=== PATIENT | male | born 1935 | race Caucasian/White ===

== ENCOUNTER 2018-02-01 18:34 | Emergency (ER) | payer MEDICARE, MEDICAID, OTHER ==
[~2018-02-01] VITALS: Ht 172.7 cm; Wt 72.7 kg
[~2018-02-01 18:34] MED LIST: ALLO100T PO; AMLO10TA PO; ASPI-611 PO; ATOR80TA PO; BUTA1CAP17 PO; CHOL10002 PO; LEVO25TA2 PO; LOSA100T15 PO; ROPI1TAB2 PO; TRAM50TA2 PO
[2018-02-01] MEDS ORDERED: acetaminophen 325mg tablet PO ONE (20:35)
[2018-02-01 22:07] VITALS: BP 150/92
== END 2018-02-01 22:08 | disposition home or self-care (01) ==
LOC: ER 18:35
DX: T65.891A Toxic effect of other specified substances, accidental (unintentional), initial encounter (principal); I10 Essential (primary) hypertension; K21.9 Gastro-esophageal reflux disease without esophagitis; R53.83 Other fatigue; G89.29 Other chronic pain; Z90.49 Acquired absence of other specified parts of digestive tract; Z98.890 Other specified postprocedural states; Z79.82 Long term (current) use of aspirin; Z79.899 Other long term (current) drug therapy; Y92.9 Unspecified place or not applicable
CPT/HCPCS: 99284

== ENCOUNTER 2018-02-04 21:30 | Emergency (ER) | payer MEDICARE, MEDICAID, OTHER ==
[~2018-02-04] VITALS: Ht 170.2 cm; Wt 70.0 kg
[2018-02-04] MEDS ORDERED: IBUP-1984 PO (23:10)
[2018-02-04] MEDS ORDERED: HYDROcodone/acetaminophen 5mg/325mg tablet PO ONE (23:40)
[2018-02-04 23:54] VITALS: BP 129/56
== END 2018-02-04 23:56 | disposition home or self-care (01) ==
LOC: ER 21:33 → MERGE 21:33 → ER 23:56
DX: S20.229A Contusion of unspecified back wall of thorax, initial encounter (principal); S00.33XA Contusion of nose, initial encounter; M54.2 Cervicalgia; Z60.2 Problems related to living alone; Y04.8XXA Assault by other bodily force, initial encounter; Y93.89 Activity, other specified; Y92.89 Other specified places as the place of occurrence of the external cause; Y99.8 Other external cause status
CPT/HCPCS: 72040; 99284

== ENCOUNTER 2018-03-13 10:05 | Emergency (ER) | payer MEDICARE, MEDICAID, OTHER ==
[~2018-03-13] VITALS: Ht 170.2 cm; Wt 62.9 kg
[~2018-03-13 10:05] MED LIST changes: -LOSA100T15 PO; +LOSA100T57 PO
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
[2018-03-13] MEDS ORDERED: acetaminophen 325mg tablet PO ONE (10:45)
[2018-03-13] MEDS ORDERED: normal saline 1000ml 1,000 ML IV ONE (10:50)
[2018-03-13 11:35] LABS: BASOPHILS % (AUTO) 0.6 % (0-1); EOSINOPHILS % (AUTO) 0.3 % (0-6); HEMATOCRIT 40.4 % (42.0-52.0); HEMOGLOBIN 13.3 g/dl (14.0-17.9); LYMPHOCYTES # (AUTO) 0.4 X10'3 (1.1-4.8); LYMPHOCYTES % (AUTO) 10.2 % (21-51); MEAN CORPUSCULAR HEMOGLOBIN 33.9 PG (27.0-31.0); MEAN CORPUSCULAR HGB CONC 32.9 % (33.0-36.5); MEAN PLATELET VOLUME 7.6 FL (7.4-10.4); MONOCYTES # (AUTO) 0.4 X10'3 (0-0.9); MONOCYTES % (AUTO) 9.5 % (2-12); NEUTROPHILS # (AUTO) 3.2 X10'3 (1.8-7.7); NEUTROPHILS % (AUTO) 79.4 % (42-75); PLATELET COUNT 231 X10'3 (140-440); RED BLOOD COUNT 3.93 X10'6 (4.70-6.10); RED CELL DISTRIBUTION WIDTH 14.3 % (11.5-14.5)
[2018-03-13 11:48] LABS: PROTHROMBIN TIME 10.1 SECONDS (9.0-12.0)
[2018-03-13 11:50] VITALS: BP 174/84
[2018-03-13 11:51] LABS: ALANINE AMINOTRANSFERASE 24 U/L (12-78); ALBUMIN 3.7 G/DL (3.4-5.0); ALBUMIN/GLOBULIN RATIO 1.1 (1.1-1.5); ALKALINE PHOSPHATASE 86 IU/L (46-116); ANION GAP 9 (8-16); ASPARTATE AMINO TRANSFERASE 31 U/L (10-37); BILIRUBIN,TOTAL 1.5 MG/DL (0.1-1.0); BLOOD UREA NITROGEN 10 MG/DL (7-18); BUN/CREATININE RATIO 8.3 (5.4-32.0); CALCIUM 8.8 MG/DL (8.5-10.1); CHLORIDE 102 MMOL/L (99-107); CREATININE 1.21 MG/DL (0.60-1.10); GLUCOSE 119 MG/DL (70-104); MAGNESIUM 1.8 MG/DL (1.5-2.4); POTASSIUM 3.9 MMOL/L (3.5-5.1); SODIUM 139 MMOL/L (135-145); TOTAL CARBON DIOXIDE 27.7 MMOL/L (24-32); eGFR 58 ML/MIN
[2018-03-13] MEDS ORDERED: iohexol 350MG/ML 100ml bottle IV ONE (12:15)
[2018-03-13] MEDS ORDERED: LIDO700A32 TOP (12:55)
[2018-03-13] MEDS ORDERED: TRAM50TA2 PO (12:55)
== END 2018-03-13 13:34 | disposition home or self-care (01) ==
LOC: ER 10:06
DX: S00.81XA Abrasion of other part of head, initial encounter (principal); M79.605 Pain in left leg; M25.512 Pain in left shoulder; I10 Essential (primary) hypertension; K21.9 Gastro-esophageal reflux disease without esophagitis; G89.29 Other chronic pain; Z90.49 Acquired absence of other specified parts of digestive tract; Z98.890 Other specified postprocedural states; Z79.82 Long term (current) use of aspirin; Z79.899 Other long term (current) drug therapy; Z60.2 Problems related to living alone; Y04.0XXA Assault by unarmed brawl or fight, initial encounter; Y93.89 Activity, other specified; Y92.89 Other specified places as the place of occurrence of the external cause; Y99.8 Other external cause status
CPT/HCPCS: 36415; 70450; 71045; 71275; 72125; 73564; 80053; 83735; 84484; 85025; 85610; 93005; 99284; J7030; Q9967

== ENCOUNTER 2018-04-23 00:48 | Emergency (ER) | payer MEDICARE, MEDICAID, OTHER ==
[~2018-04-23] VITALS: Ht 170.2 cm; Wt 68.0 kg
[~2018-04-23 00:48] MED LIST changes: +LIDO700A32 TOP
[2018-04-23] MEDS ORDERED: aspirin 81mg tab.chew PO ONE (00:55)
--- NOTE | 2018-04-23 01:00 | NUR ---
PT HAVING SHARP CHEST PAINS THAT MAKE HIM JERK WHILE LYING IN BED. WAS HANGING UP FRESHLY WASHED CLOTHES IN BATHROOM WHEN PAIN STARTED. RECEIVED ASA 324MG AND NTG X 1 SL ENROUTE TO ER.
[2018-04-23 01:23] LABS: BASOPHILS % (AUTO) 1.5 % (0-1); EOSINOPHILS % (AUTO) 0.3 % (0-6); HEMATOCRIT 35.1 % (42.0-52.0); HEMOGLOBIN 11.9 g/dl (14.0-17.9); LYMPHOCYTES # (AUTO) 0.8 X10'3 (1.1-4.8); LYMPHOCYTES % (AUTO) 23.7 % (21-51); MEAN CORPUSCULAR HEMOGLOBIN 34.5 PG (27.0-31.0); MEAN CORPUSCULAR HGB CONC 33.8 g/dL (33.0-36.5); MEAN CORPUSCULAR VOLUME 102.1 FL (78-98); MEAN PLATELET VOLUME 7.6 FL (7.4-10.4); MONOCYTES # (AUTO) 0.4 X10'3 (0-0.9); MONOCYTES % (AUTO) 13.5 % (2-12); PLATELET COUNT 207 X10'3 (140-440); RED BLOOD COUNT 3.44 X10'6 (4.70-6.10); RED CELL DISTRIBUTION WIDTH 14.3 % (11.5-14.5); WHITE BLOOD COUNT 3.2 X10'3 (4.5-11.0)
[2018-04-23 01:28] LABS: ALANINE AMINOTRANSFERASE 18 U/L (12-78); ALBUMIN 3.5 G/DL (3.4-5.0); ALBUMIN/GLOBULIN RATIO 1.2 (1.1-1.5); ALKALINE PHOSPHATASE 94 IU/L (46-116); ANION GAP 12 (8-16); ASPARTATE AMINO TRANSFERASE 27 U/L (10-37); BILIRUBIN,TOTAL 0.3 MG/DL (0.1-1.0); BLOOD UREA NITROGEN 19 MG/DL (7-18); CALCIUM 8.7 MG/DL (8.5-10.1); CHLORIDE 104 MMOL/L (99-107); CREATININE 1.12 MG/DL (0.60-1.10); GLUCOSE 82 MG/DL (70-104); POTASSIUM 3.4 MMOL/L (3.5-5.1); SODIUM 143 MMOL/L (135-145); TOTAL CARBON DIOXIDE 27.4 MMOL/L (24-32); TOTAL PROTEIN 6.5 G/DL (6.4-8.2); eGFR 63 ML/MIN
[2018-04-23 03:42] VITALS: BP 127/81
== END 2018-04-23 03:43 | disposition home or self-care (01) ==
LOC: ER 00:50
DX: R07.89 Other chest pain (principal); R06.02 Shortness of breath; I10 Essential (primary) hypertension; K21.9 Gastro-esophageal reflux disease without esophagitis; G89.29 Other chronic pain; M54.9 Dorsalgia, unspecified; F10.10 Alcohol abuse, uncomplicated; Z79.82 Long term (current) use of aspirin
CPT/HCPCS: 36415; 71045; 80053; 83735; 83880; 84484; 85025; 93005; 99284

== ENCOUNTER 2018-05-20 13:45 | Emergency (ER) | payer MEDICARE, MEDICAID, OTHER ==
[~2018-05-20] VITALS: Ht 170.2 cm; Wt 64.7 kg
[2018-05-20 13:58] VITALS: BP 115/68
--- NOTE | 2018-05-20 14:22 | NUR ---
CALL TO [facility] AT THIS TIME, OFFICER TO BE DISPATCHED SOON POSSIBLE.
[2018-05-20] MEDS ORDERED: TETanus/Pertussis (Acell)/Diphther VAC/PF (Tdap-Adult) 0.5ml syringe IM ONE (15:25)
[2018-05-20] MEDS ORDERED: bacitracin 15gm ointment TP ONE (15:25)
[2018-05-20 15:26] LABS: BASOPHILS % (AUTO) 0.2 % (0-1); EOSINOPHILS % (AUTO) 0 % (0-6); HEMATOCRIT 33.3 % (42.0-52.0); HEMOGLOBIN 11.5 g/dl (14.0-17.9); LYMPHOCYTES # (AUTO) 0.4 X10'3 (1.1-4.8); MEAN CORPUSCULAR HEMOGLOBIN 35.3 PG (27.0-31.0); MEAN CORPUSCULAR HGB CONC 34.6 g/dL (33.0-36.5); MEAN CORPUSCULAR VOLUME 102.1 FL (78-98); MEAN PLATELET VOLUME 7.6 FL (7.4-10.4); MONOCYTES # (AUTO) 0.9 X10'3 (0-0.9); MONOCYTES % (AUTO) 8.9 % (2-12); NEUTROPHILS # (AUTO) 8.7 X10'3 (1.8-7.7); NEUTROPHILS % (AUTO) 86.9 % (42-75); PLATELET COUNT 164 X10'3 (140-440); RED BLOOD COUNT 3.26 X10'6 (4.70-6.10)
[2018-05-20 15:31] LABS: ALANINE AMINOTRANSFERASE 22 U/L (12-78); ALBUMIN 3.3 G/DL (3.4-5.0); ALKALINE PHOSPHATASE 93 IU/L (46-116); ANION GAP 13 (8-16); ASPARTATE AMINO TRANSFERASE 26 U/L (10-37); BILIRUBIN,TOTAL 0.9 MG/DL (0.1-1.0); BLOOD UREA NITROGEN 15 MG/DL (7-18); BUN/CREATININE RATIO 14.2 (5.4-32.0); CALCIUM 8.8 MG/DL (8.5-10.1); CHLORIDE 101 MMOL/L (99-107); CREATININE 1.06 MG/DL (0.60-1.10); ETHANOL 0.105 GM/DL (0.0-0.010); GLUCOSE 108 MG/DL (70-104); POTASSIUM 3.4 MMOL/L (3.5-5.1); SODIUM 136 MMOL/L (135-145); TOTAL CARBON DIOXIDE 22.3 MMOL/L (24-32); TOTAL PROTEIN 6.5 G/DL (6.4-8.2); eGFR 67 ML/MIN
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
[2018-05-20] MEDS ORDERED: cephalexin 250mg capsule PO ONE (16:05)
[2018-05-20] MEDS ORDERED: sulfamethoxazole/trimethoprim DS (800/160mg) tablet PO ONE (16:05)
[2018-05-20 16:15] LABS: URINE AMPHETAMINE SCREEN NEGATIVE (Neg); URINE BARBITUATE SCREEN NEGATIVE (Neg); URINE BENZODIAZEPINES SCREEN NEGATIVE (Neg); URINE CANNABINOID SCREEN NEGATIVE (Neg); URINE COCAINE SCREEN NEGATIVE (Neg); URINE METHADONE SCREEN NEGATIVE (Neg); URINE OPIATE SCREEN NEGATIVE (Neg); URINE PHENCYCLIDINE SCREEN NEGATIVE (Neg)
[2018-05-20] MEDS ORDERED: BACDS PO (16:16)
[2018-05-20] MEDS ORDERED: CEPH500C5 PO (16:16)
[2018-05-24] MEDS ORDERED: FOLI1TAB16 PO (10:02)
[2018-05-24] MEDS ORDERED: CEPH250T PO (10:02)
[2018-05-24] MEDS ORDERED: thiamine tablet PO (10:02)
[2018-05-24] MEDS ORDERED: MAGN500C16 PO (13:56)
== END 2018-05-20 16:55 | disposition home or self-care (01) ==
LOC: ER 13:46
DX: S51.801A Unspecified open wound of right forearm, initial encounter (principal); S51.802A Unspecified open wound of left forearm, initial encounter; S50.312A Abrasion of left elbow, initial encounter; L03.114 Cellulitis of left upper limb; L03.113 Cellulitis of right upper limb; I10 Essential (primary) hypertension; K21.9 Gastro-esophageal reflux disease without esophagitis; G89.29 Other chronic pain; Z90.49 Acquired absence of other specified parts of digestive tract; Z98.890 Other specified postprocedural states; Z79.82 Long term (current) use of aspirin; Z79.899 Other long term (current) drug therapy; Y04.0XXA Assault by unarmed brawl or fight, initial encounter; Y93.89 Activity, other specified; Y92.89 Other specified places as the place of occurrence of the external cause; Y99.9 Unspecified external cause status
CPT/HCPCS: 36415; 70450; 80053; 80305; 80320; 85025; 90471; 90715; 99284

== ENCOUNTER 2018-05-21 19:58 | Inpatient (IN) | payer MEDICARE, MEDICAID, OTHER | END 2018-05-24 15:30 | disposition home or self-care (01) | LOC: ER 19:58 → ED HOLD 05-22 00:26 → SUR 3N 05-22 15:46 | DX: A41.9 Sepsis, unspecified organism (principal); L03.113 Cellulitis of right upper limb; L03.114 Cellulitis of left upper limb; N17.9 Acute kidney failure, unspecified; E87.6 Hypokalemia; F10.20 Alcohol dependence, uncomplicated; E86.0 Dehydration ==

== ENCOUNTER 2018-06-19 09:00 | Day surgery (SDC) | payer MEDICARE, MEDICAID, OTHER ==
[~2018-06-19 09:00] MED LIST changes: -ALLO100T PO; -ASPI-611 PO; -ATOR80TA PO; -BUTA1CAP17 PO; +CEPH250T PO; -CHOL10002 PO; +DICL100G15 TOP; +FOLI1TAB16 PO; -LEVO25TA2 PO; -LIDO700A32 TOP; +MAGN500C16 PO; -TRAM50TA2 PO; +thiamine tablet PO
[2018-06-19] MEDS ORDERED: LIDOcaine 1%/PF 5ML 10 MG/ML VIAL ONE (10:28)
[2018-06-19] MEDS ORDERED: mupirocin 2% ointment 22GM ONE (11:54)
--- NOTE | 2018-06-19 12:00 | NUR ---
Patient ambulated independently from [facility] and was admitted to outpatient wound care for physician visit with Jose J Houser MD. Patient referred by his PMD for excision of 2 sebaceous cysts to his back. New patient assessment completed. 1115 - Dr. Houser at bedside accompanied by RN. Wound assessed, time out performed by MD/RN. Procedure performed as detailed in the physician progress/procedure note. Plan of care discussed with patient. Dressings placed per MD orders. Patient instructed to return to clinic in 1 week. Patient instructed on the signs and symptoms of infection and to call the [facility] if any occur or to go to the ED if we are closed: Increased pain in wound Increase in drainage from the wound Redness in the skin surrounding the wound Bleeding from the wound Temperature of 101 or greater Patient instructed that the weight of their body puts a large amount of pressure on their wounds. This pressure keeps the new tissue from growing and inhibits new blood vessels from forming. Explained that, if they continue to bear weight on a body part that has a wound, the time it takes to heal the wound increases, the wound may get worse or the wound may not heal at all. Patient verbalized understanding of all discharge instructions and plan of care and ambulated independently out to [facility] in stable condition with no sign or symptom of distress at time of discharge.
== END 2018-06-19 12:06 | disposition home or self-care (01) ==
LOC: WOUND CARE 09:00
PROVIDERS: ATTEND Surgery
DX: L72.3 Sebaceous cyst (principal); R20.8 Other disturbances of skin sensation; I10 Essential (primary) hypertension; K21.9 Gastro-esophageal reflux disease without esophagitis; G62.9 Polyneuropathy, unspecified; F10.20 Alcohol dependence, uncomplicated; F03.90 Unspecified dementia, unspecified severity, without behavioral disturbance, psychotic disturbance, mood disturbance, and anxiety; Z79.82 Long term (current) use of aspirin; Z79.899 Other long term (current) drug therapy; Z98.890 Other specified postprocedural states; Z90.49 Acquired absence of other specified parts of digestive tract; G89.29 Other chronic pain
CPT/HCPCS: 11056; J2001; 88304

== ENCOUNTER 2021-08-03 13:46 | Inpatient (IN) | payer MEDICARE, MEDICAID ==
[~2021-08-03] VITALS: Ht 170.2 cm; Wt 70.5 kg
[~2021-08-03 13:46] MED LIST changes: -AMLO10TA PO; -CEPH250T PO; -DICL100G15 TOP; -FOLI1TAB16 PO; -LOSA100T57 PO; -MAGN500C16 PO; +METO-395 PO; -ROPI1TAB2 PO; -thiamine tablet PO
[2021-08-03 14:01] LABS: BASOPHILS % (AUTO) 0.7 % (0-1); EOSINOPHILS % (AUTO) 0.5 % (0-6); HEMATOCRIT 36.6 % (42.0-52.0); HEMOGLOBIN 12.1 g/dl (14.0-17.9); LYMPHOCYTES # (AUTO) 0.8 X10'3 (1.1-4.8); LYMPHOCYTES % (AUTO) 12.6 % (21-51); MEAN PLATELET VOLUME 7.8 FL (7.4-10.4); MONOCYTES # (AUTO) 0.6 X10'3 (0-0.9); MONOCYTES % (AUTO) 9.3 % (2-12); NEUTROPHILS # (AUTO) 5.1 X10'3 (1.8-7.7); NEUTROPHILS % (AUTO) 76.9 % (42-75); PLATELET COUNT 304 X10'3 (140-440); RED BLOOD COUNT 3.55 X10'6 (4.70-6.10); RED CELL DISTRIBUTION WIDTH 13.1 % (11.5-14.5); WHITE BLOOD COUNT 6.6 X10'3 (4.5-11.0)
[2021-08-03 14:14] LABS: APTT 23 SECONDS (22-32)
[2021-08-03 14:18] LABS: ALANINE AMINOTRANSFERASE 15 U/L (12-78); ALBUMIN 3.4 G/DL (3.4-5.0); ALBUMIN/GLOBULIN RATIO 1.2 (1.1-1.5); ALKALINE PHOSPHATASE 88 IU/L (46-116); ANION GAP 21 (8-16); ASPARTATE AMINO TRANSFERASE 22 U/L (10-37); BILIRUBIN,TOTAL 0.9 MG/DL (0.1-1.0); BLOOD UREA NITROGEN 16 MG/DL (7-18); BUN/CREATININE RATIO 7.7 (5.4-32.0); CALCIUM 8.3 MG/DL (8.5-10.1); CHLORIDE 104 MMOL/L (99-107); CREATININE 2.09 MG/DL (0.60-1.10); GLUCOSE 150 MG/DL (70-104); POTASSIUM 3.1 MMOL/L (3.5-5.1); SODIUM 142 MMOL/L (135-145); TOTAL CARBON DIOXIDE 17.4 MMOL/L (24-32); TOTAL PROTEIN 6.2 G/DL (6.4-8.2); eGFR 30 ML/MIN
[2021-08-03] MEDS ORDERED: ondansetron/PF 4mg/2ml inj IM ONE (15:00)
[2021-08-03] MEDS ORDERED: morphine 4 MG/ML inj SYRINge IV ONE (15:00)
--- NOTE | 2021-08-03 15:00 | NUR ---
Prior to CTA patient vomited on the table and pulse dropped to 50 brought back to room.
--- NOTE | 2021-08-03 15:09 | NUR ---
Zofran and morphine given for pain and emesis.. Patient unable to give pain number just yells out and holds his breath.
[2021-08-03] MEDS ORDERED: normal saline 1000ML IV soln IVB ONE (15:20)
[2021-08-03] MEDS ORDERED: ondansetron/PF 4mg/2ml inj IV ONE (15:20)
[2021-08-03] MEDS ORDERED: iohexol 350MG/ML 100ml bottle IV ONE (15:35)
[2021-08-03] MEDS ORDERED: magnesium hydroxide 30ml (MOM) UD suspension PO PRN (16:30)
[2021-08-03] MEDS ORDERED: mag hydrox/Alum hydrox/simeth 30ml oral suspension PO PRN (16:30)
[2021-08-03] MEDS ORDERED: ondansetron/PF 4mg/2ml inj IV PRN (16:30)
[2021-08-03] MEDS: morphine 4 MG/ML inj SYRINge IV PRN ×2 (16:39→21:15)
[2021-08-03] MEDS: normal saline 1000ml 1,000 ML IV SCH (16:40)
[2021-08-03] MEDS: enoxaparin 30mg/0.3ml syringe SUBCUT SCH (17:38)
[2021-08-03 18:52] LABS: CHOL/HDL RATIO 3.3 (0.00-4.99); CHOLESTEROL 237 MG/DL (0-200); HDL CHOLESTEROL 71 MG/DL (35-60); LDL CHOLESTEROL 141 MG/DL (50-100); TRIGLYCERIDES 104 MG/DL (20-135)
[2021-08-03] MEDS ORDERED: NO HOME MEDS (19:00)
--- NOTE | 2021-08-03 19:00 | NUR ---
Patient in room ORTHO 4021. I have received report from POP Frias and had the opportunity to ask questions and assume patient care.
--- NOTE | 2021-08-03 19:07 | NUR ---
Patient briefly assessed as this proposal manager writer just took over for patient before going upstairs. Patient appears in no active distress. Neuro check is positive for confusion regarding year = patient stated it was "1983." Science Education Professor strength and extremity tests negative for any deficiencies.
[2021-08-03] MEDS ORDERED: potassium Cl 20 mEq SR tablet PO STA (19:32)
[2021-08-03 19:51] VITALS: BP 143/84
[2021-08-03] MEDS: docusate sod 100mg capsule PO SCH (21:11)
[2021-08-03 22:00] VITALS: BP 185/80
[2021-08-03 23:20] LABS: CLARITY,URINE SLIGHTLY CLOUDY (Clear); COLOR,URINE YELLOW (Yellow); GLUCOSE, URINE NEGATIVE (Neg); KETONES,URINE NEGATIVE (Neg); LEUKOCYTE ESTERASE ,URINE TRACE (Neg); NITRITES, URINE NEGATIVE (Neg); OCCULT BLOOD,URINE SMALL (Neg); PH,URINE 6.5 (4.8-8.0); PROTEIN,URINE TRACE mg/dl (Neg)
[2021-08-03 23:38] LABS: UA COLLECTION TYPE NON-SPECIFIED
[2021-08-03 23:40] LABS: BACTERIA,URINE FEW /HPF (Neg); MUCUS STRANDS FEW /LPF (Neg); SQUAMOUS EPITHELIAL CELL,UR FEW /LPF (FEW); TRANSITIONAL EPI CELLS,URINE FEW /HPF; WBC CLUMPS,URINE FEW /HPF (NEGATIVE)
[2021-08-03 23:58] VITALS: BP 119/56
[2021-08-04] VITALS (7 sets, daily range): BP systolic 97–162; BP diastolic 45–83
[2021-08-04] MEDS: normal saline 1000ml 1,000 ML IV SCH ×3 (05:39→16:23)
--- NOTE | 2021-08-04 06:40 | NUR ---
Problems reprioritized. Patient report given, questions answered & plan of care reviewed with POP Segura.
--- NOTE | 2021-08-04 06:42 | NUR ---
Patient in room ORTHO 4021. I have received report from POP Snow and had the opportunity to ask questions and assume patient care.
[2021-08-04 07:03] LABS: EOSINOPHILS % (AUTO) 1.2 % (0-6); HEMATOCRIT 30.8 % (42.0-52.0); HEMOGLOBIN 10.5 g/dl (14.0-17.9); LYMPHOCYTES # (AUTO) 0.6 X10'3 (1.1-4.8); LYMPHOCYTES % (AUTO) 13.2 % (21-51); MEAN CORPUSCULAR HEMOGLOBIN 35.6 PG (27.0-31.0); MEAN CORPUSCULAR HGB CONC 34.3 g/dL (33.0-36.5); MEAN CORPUSCULAR VOLUME 103.8 FL (78-98); MEAN PLATELET VOLUME 8.1 FL (7.4-10.4); MONOCYTES # (AUTO) 0.4 X10'3 (0-0.9); MONOCYTES % (AUTO) 9.8 % (2-12); NEUTROPHILS # (AUTO) 3.1 X10'3 (1.8-7.7); NEUTROPHILS % (AUTO) 74.8 % (42-75); PLATELET COUNT 213 X10'3 (140-440); RED BLOOD COUNT 2.96 X10'6 (4.70-6.10); WHITE BLOOD COUNT 4.2 X10'3 (4.5-11.0)
[2021-08-04 07:08] LABS: ALBUMIN 2.8 G/DL (3.4-5.0); ANION GAP 6 (8-16); BLOOD UREA NITROGEN 18 MG/DL (7-18); BUN/CREATININE RATIO 10.2 (5.4-32.0); CALCIUM 8.3 MG/DL (8.5-10.1); CHLORIDE 106 MMOL/L (99-107); CREATININE 1.77 MG/DL (0.60-1.10); GLUCOSE 102 MG/DL (70-104); POTASSIUM 4.3 MMOL/L (3.5-5.1); SODIUM 136 MMOL/L (135-145); TOTAL CARBON DIOXIDE 23.9 MMOL/L (24-32); eGFR 37 ML/MIN
[2021-08-04] MEDS: aspirin 325mg tablet, delayed-release (Ecotrin) PO SCH (07:21)
[2021-08-04] MEDS: enoxaparin 30mg/0.3ml syringe SUBCUT SCH (07:21)
[2021-08-04] MEDS: docusate sod 100mg capsule PO SCH ×2 (07:21→19:52)
[2021-08-04] MEDS: acetaminophen 325mg tablet PO PRN ×2 (07:40→16:46)
--- NOTE | 2021-08-04 10:15 | NUR ---
Dr. Thomas aware patient chest pain not relieved with Tylenol. Dr. Thomas stated patient was given Morphine 4mg in Er and became very confused. No new orders.
--- NOTE | 2021-08-04 10:55 | NUR ---
fiber technologist in at bedside.
--- NOTE | 2021-08-04 18:16 | NUR ---
Problems reprioritized. Patient report given, questions answered & plan of care reviewed with POP Snow.
[2021-08-05 01:58] VITALS: BP 140/71
[2021-08-05] MEDS: normal saline 1000ml 1,000 ML IV SCH ×3 (03:52→14:56)
[2021-08-05 05:17] LABS: ALBUMIN 2.7 G/DL (3.4-5.0); ANION GAP 8 (8-16); BLOOD UREA NITROGEN 22 MG/DL (7-18); BUN/CREATININE RATIO 14.7 (5.4-32.0); CALCIUM 8.1 MG/DL (8.5-10.1); CHLORIDE 106 MMOL/L (99-107); GLUCOSE 107 MG/DL (70-104); POTASSIUM 4.2 MMOL/L (3.5-5.1); SODIUM 137 MMOL/L (135-145); TOTAL CARBON DIOXIDE 23.4 MMOL/L (24-32); eGFR 45 ML/MIN
[2021-08-05 05:18] LABS: BASOPHILS % (AUTO) 0.8 % (0-1); EOSINOPHILS # (AUTO) 0.1 X10'3 (0-0.9); EOSINOPHILS % (AUTO) 2.1 % (0-6); LYMPHOCYTES # (AUTO) 0.4 X10'3 (1.1-4.8); LYMPHOCYTES % (AUTO) 11.9 % (21-51); MEAN CORPUSCULAR HEMOGLOBIN 34.5 PG (27.0-31.0); MEAN CORPUSCULAR HGB CONC 33.3 g/dL (33.0-36.5); MEAN CORPUSCULAR VOLUME 103.6 FL (78-98); MEAN PLATELET VOLUME 8.6 FL (7.4-10.4); MONOCYTES # (AUTO) 0.4 X10'3 (0-0.9); MONOCYTES % (AUTO) 10.2 % (2-12); NEUTROPHILS # (AUTO) 2.7 X10'3 (1.8-7.7); PLATELET COUNT 199 X10'3 (140-440); RED BLOOD COUNT 2.89 X10'6 (4.70-6.10); RED CELL DISTRIBUTION WIDTH 13.1 % (11.5-14.5); WHITE BLOOD COUNT 3.7 X10'3 (4.5-11.0)
[2021-08-05 06:00] VITALS: BP 139/71
--- NOTE | 2021-08-05 06:41 | NUR ---
Problems reprioritized. Patient report given, questions answered & plan of care reviewed with POP Mac.
--- NOTE | 2021-08-05 06:42 | NUR ---
Patient in room ORTHO 4021. I have received report from Alina and had the opportunity to ask questions and assume patient care.
--- NOTE | 2021-08-05 06:47 | NUR ---
Problems reprioritized. Patient report given, questions answered & plan of care reviewed with POP Mac.
[2021-08-05] MEDS: docusate sod 100mg capsule PO SCH ×2 (09:13→19:26)
[2021-08-05] MEDS: aspirin 325mg tablet, delayed-release (Ecotrin) PO SCH (09:13)
[2021-08-05] MEDS: enoxaparin 30mg/0.3ml syringe SUBCUT SCH (09:13)
[2021-08-05 10:00] VITALS: BP 161/91
[2021-08-05 14:00] VITALS: BP 158/64
[2021-08-05] MEDS: acetaminophen 325mg tablet PO PRN ×2 (15:01→22:41)
[2021-08-05 18:00] VITALS: BP 143/81
--- NOTE | 2021-08-05 18:09 | NUR ---
Problems reprioritized. Patient report given, questions answered & plan of care reviewed with Amena.
--- NOTE | 2021-08-05 18:30 | NUR ---
PAGER ID: [phone] MESSAGE: Please call 1522/Amena r/stacey Landis came back on urine and gram positive cocci, do you want abx Addendum: 08/05/21 at 1846 by Amena Wilson RN called back with new orders
[2021-08-05] MEDS: cefTRIAXone 1g/NS 100ml IVPB 100 ML IV SCH (19:26)
[2021-08-05 22:00] VITALS: BP 167/84
[2021-08-06] MEDS: normal saline 1000ml 1,000 ML IV SCH ×2 (00:43→14:30)
[2021-08-06 05:00] VITALS: BP 193/92
[2021-08-06] MEDS: acetaminophen 325mg tablet PO PRN (05:41)
[2021-08-06 06:10] LABS: BASOPHILS % (AUTO) 0.7 % (0-1); EOSINOPHILS # (AUTO) 0.1 X10'3 (0-0.9); HEMATOCRIT 29.9 % (42.0-52.0); HEMOGLOBIN 10.2 g/dl (14.0-17.9); LYMPHOCYTES # (AUTO) 0.6 X10'3 (1.1-4.8); LYMPHOCYTES % (AUTO) 14.3 % (21-51); MEAN CORPUSCULAR HEMOGLOBIN 35.3 PG (27.0-31.0); MEAN CORPUSCULAR HGB CONC 34.1 g/dL (33.0-36.5); MEAN CORPUSCULAR VOLUME 103.4 FL (78-98); MEAN PLATELET VOLUME 8.9 FL (7.4-10.4); MONOCYTES # (AUTO) 0.5 X10'3 (0-0.9); MONOCYTES % (AUTO) 13.7 % (2-12); NEUTROPHILS # (AUTO) 2.7 X10'3 (1.8-7.7); NEUTROPHILS % (AUTO) 68.3 % (42-75); PLATELET COUNT 201 X10'3 (140-440); RED BLOOD COUNT 2.89 X10'6 (4.70-6.10); RED CELL DISTRIBUTION WIDTH 13.3 % (11.5-14.5)
--- NOTE | 2021-08-06 06:12 | NUR ---
Report given to Estefania LORD
[2021-08-06 06:17] LABS: ALBUMIN 2.8 G/DL (3.4-5.0); ANION GAP 9 (8-16); BLOOD UREA NITROGEN 19 MG/DL (7-18); BUN/CREATININE RATIO 16.8 (5.4-32.0); CALCIUM 8.3 MG/DL (8.5-10.1); CHLORIDE 106 MMOL/L (99-107); CREATININE 1.13 MG/DL (0.60-1.10); GLUCOSE 101 MG/DL (70-104); POTASSIUM 3.7 MMOL/L (3.5-5.1); SODIUM 139 MMOL/L (135-145); TOTAL CARBON DIOXIDE 24.3 MMOL/L (24-32); eGFR 62 ML/MIN
[2021-08-06] MEDS: cefTRIAXone 1g/NS 100ml IVPB 100 ML IV SCH (08:04)
[2021-08-06] MEDS: aspirin 325mg tablet, delayed-release (Ecotrin) PO SCH (08:06)
[2021-08-06] MEDS: docusate sod 100mg capsule PO SCH (08:06)
[2021-08-06] MEDS: enoxaparin 30mg/0.3ml syringe SUBCUT SCH (08:07)
[2021-08-06 08:50] VITALS: BP 170/89
[2021-08-06 10:00] VITALS: BP 187/95
--- NOTE | 2021-08-06 10:26 | NUR ---
High BP this AM, message sent to Dr Thomas for blood pressure medication
[2021-08-06] MEDS ORDERED: metoprolol succinate 25mg (24-HOUR) SR. Tablet PO SCH (11:07)
[2021-08-06] MEDS ORDERED: amLODIPine 5mg tablet PO ONE (11:10)
[2021-08-06] MEDS ORDERED: ASPI81TA52 PO (11:43)
[2021-08-06] MEDS ORDERED: ATOR20TA PO (11:43)
[2021-08-06] MEDS ORDERED: AMOX500C2 PO (11:43)
[2021-08-06 12:30] VITALS: BP 172/82
[2021-08-06 14:32] VITALS: BP 153/67
--- NOTE | 2021-08-06 15:31 | NUR ---
BP now good for discharge but granddaughter Jesenia is not answering phone for roll picker. I talked to her earlier on phone number provided and she said she was available to roll picker patient when we were ready. I told her I would call her back when I got his blood pressure down. Will continue to try to get ahold of her for roll picker.
--- NOTE | 2021-08-06 16:42 | NUR ---
Still unable to reach family, I have tried 3 different phone numbers with no response. Discharge papers done. Patient appropriate to leave with family. With hx of confusion I am unable to send him home via taxi at this time without knowing there is a plan by family. Dr Thomas paged about being unable to discharge patient.
--- NOTE | 2021-08-06 17:02 | NUR ---
Liz Nursing Drop Wire Stringer aware that I am having trouble getting ahold of family to pick patient up.
--- NOTE | 2021-08-06 17:14 | NUR ---
Granddaughter has answered phone, family is on his way to come get patient.
--- NOTE | 2021-08-06 17:27 | NUR ---
Patient being discharged with family member. Family and patient aware of discharge instructions. 2x IV's taken out, tele dc'd. All belongings taken from room. Pt appears appropriate for discharge at this time.
--- NOTE | 2021-08-06 17:55 | NUR ---
While waiting for family for discharge patient patient says he has chest pain, dr ashley aware and says it is his rib pain and he is okay to discharge at this time without ekg .
--- NOTE | 2021-08-06 18:30 | NUR ---
Family has picked up patient for home. Patient is officially discharged.
--- NOTE | 2021-08-15 14:54 | NUR ---
Case Management DC follow up:Left name,telephone number, and reason for call on message machine.
== END 2021-08-06 18:59 | disposition home or self-care (01) | DRG 70 ==
LOC: ER 13:47 → ED HOLD 16:36 → ORTHO 4S 19:25
PROVIDERS: ADMIT Family Medicine; ATTEND Family Medicine
PROC: B3251ZZ Computerized Tomography (CT Scan) of Bilateral Common Carotid Arteries using Low Osmolar Contrast (ICD-10-PCS; 2021-08-03)
PROC: B32G1ZZ Computerized Tomography (CT Scan) of Bilateral Vertebral Arteries using Low Osmolar Contrast (ICD-10-PCS; 2021-08-03)
PROC: B32R1ZZ Computerized Tomography (CT Scan) of Intracranial Arteries using Low Osmolar Contrast (ICD-10-PCS; 2021-08-03)
PROC: B3281ZZ Computerized Tomography (CT Scan) of Bilateral Internal Carotid Arteries using Low Osmolar Contrast (ICD-10-PCS; 2021-08-03)
PROC: 4A10X4Z Monitoring of Central Nervous Electrical Activity, External Approach (ICD-10-PCS; principal; 2021-08-04)
DX: G93.41 Metabolic encephalopathy (principal); N17.0 Acute kidney failure with tubular necrosis; G45.9 Transient cerebral ischemic attack, unspecified; R47.01 Aphasia; N39.0 Urinary tract infection, site not specified; F03.90 Unspecified dementia, unspecified severity, without behavioral disturbance, psychotic disturbance, mood disturbance, and anxiety; G89.4 Chronic pain syndrome; F10.10 Alcohol abuse, uncomplicated; B95.2 Enterococcus as the cause of diseases classified elsewhere; Z60.2 Problems related to living alone; H51.0 Palsy (spasm) of conjugate gaze; I10 Essential (primary) hypertension; I48.91 Unspecified atrial fibrillation; J44.9 Chronic obstructive pulmonary disease, unspecified; K21.9 Gastro-esophageal reflux disease without esophagitis; M54.9 Dorsalgia, unspecified; R00.0 Tachycardia, unspecified; Z90.49 Acquired absence of other specified parts of digestive tract; Z88.2 Allergy status to sulfonamides; Z79.82 Long term (current) use of aspirin
CPT/HCPCS: 36415; 70450; 70496; 70498; 70544; 70551; 71045; 80048; 80053; 80061; 81001; 84484; 85025; 85610; 85730; 87077; 87081; 87088; 87186; 92508; 92616; 93005; 93306; 93880; 95816; 96372; 96374; 97116; 97162; 97530; 99285; G0378; J0696; J1650; J2270; J2405; J3490; J7030; Q9967

== ENCOUNTER 2021-09-05 10:25 | Emergency (ER) | payer OTHER, MEDICARE, MEDICAID ==
[~2021-09-05] VITALS: Ht 170.2 cm; Wt 70.0 kg
[~2021-09-05 10:25] MED LIST changes: +AMOX500C2 PO; +ASPI81TA52 PO; +ATOR20TA PO
--- NOTE | 2021-09-05 11:58 | NUR ---
not in lobby
[2021-09-05 12:16] VITALS: BP 132/81
[2021-09-05 12:58] LABS: BASOPHILS # (AUTO) 0.1 X10'3 (0-0.2); BASOPHILS % (AUTO) 0.8 % (0-1); EOSINOPHILS % (AUTO) 0.1 % (0-6); HEMATOCRIT 39.3 % (42.0-52.0); HEMOGLOBIN 13.1 g/dl (14.0-17.9); LYMPHOCYTES # (AUTO) 0.6 X10'3 (1.1-4.8); LYMPHOCYTES % (AUTO) 8.7 % (21-51); MEAN CORPUSCULAR HEMOGLOBIN 34.5 PG (27.0-31.0); MEAN CORPUSCULAR HGB CONC 33.4 g/dL (33.0-36.5); MEAN CORPUSCULAR VOLUME 103.3 FL (78-98); MONOCYTES # (AUTO) 0.6 X10'3 (0-0.9); MONOCYTES % (AUTO) 9.4 % (2-12); NEUTROPHILS # (AUTO) 5.5 X10'3 (1.8-7.7); PLATELET COUNT 345 X10'3 (140-440); RED BLOOD COUNT 3.81 X10'6 (4.70-6.10); RED CELL DISTRIBUTION WIDTH 14.1 % (11.5-14.5); WHITE BLOOD COUNT 6.8 X10'3 (4.5-11.0)
[2021-09-05] MEDS ORDERED: normal saline 1000ML IV soln IVB ONE (13:15)
[2021-09-05 13:16] LABS: ALANINE AMINOTRANSFERASE 22 U/L (12-78); ALBUMIN/GLOBULIN RATIO 1.1 (1.1-1.5); ALKALINE PHOSPHATASE 102 IU/L (46-116); ANION GAP 13 (8-16); ASPARTATE AMINO TRANSFERASE 36 U/L (10-37); BILIRUBIN,TOTAL 1.2 MG/DL (0.1-1.0); BLOOD UREA NITROGEN 20 MG/DL (7-18); BUN/CREATININE RATIO 13.1 (5.4-32.0); CALCIUM 9.8 MG/DL (8.5-10.1); CHLORIDE 97 MMOL/L (99-107); CREATININE 1.53 MG/DL (0.60-1.10); GLUCOSE 110 MG/DL (70-104); POTASSIUM 4.9 MMOL/L (3.5-5.1); SODIUM 133 MMOL/L (135-145); TOTAL CARBON DIOXIDE 23.1 MMOL/L (24-32); TOTAL PROTEIN 7.6 G/DL (6.4-8.2); eGFR 44 ML/MIN
[2021-09-05 14:51] LABS: CLARITY,URINE CLEAR (Clear); COLOR,URINE YELLOW (Yellow); GLUCOSE, URINE NEGATIVE (Neg); KETONES,URINE TRACE mg/dl (Neg); LEUKOCYTE ESTERASE ,URINE NEGATIVE (Neg); NITRITES, URINE NEGATIVE (Neg); OCCULT BLOOD,URINE NEGATIVE (Neg); PH,URINE 5.5 (4.8-8.0); PROTEIN,URINE TRACE mg/dl (Neg); UROBILINOGEN,URINE 0.2 E.U/dL (0.2-1.0)
[2021-09-05 14:54] LABS: UA COLLECTION TYPE NON-SPECIFIED
[2021-09-05 15:09] LABS: HYALINE CASTS >30 /LPF (NEGATIVE)
[2021-09-05 15:10] LABS: COARSE GRANULAR CAST 0-3 /LPF (NEGATIVE)
[2021-09-05 15:11] LABS: AMORPHOUS URATES 1+
[2021-09-05 15:12] LABS: MUCUS STRANDS FEW /LPF (Neg); SQUAMOUS EPITHELIAL CELL,UR FEW /LPF (FEW)
[2021-09-05 15:13] LABS: RENAL CELLS, URINE MODERATE /HPF
[2021-09-05 15:15] LABS: BACTERIA,URINE 1+ /HPF (Neg); RBC,URINE NONE SEEN /HPF (0-2)
[2021-09-05 15:18] LABS: FINE GRANULAR CAST 0-3 /LPF (NEGATIVE)
[2021-09-05] MEDS ORDERED: cephalexin 500mg capsule PO ONE (15:30)
[2021-09-05] MEDS ORDERED: CEPH500C2 PO (15:30)
== END 2021-09-05 15:49 | disposition home or self-care (01) ==
LOC: ER 10:29
DX: S22.42XA Multiple fractures of ribs, left side, initial encounter for closed fracture (principal); Z20.822 Contact with and (suspected) exposure to COVID-19; R55 Syncope and collapse; R07.89 Other chest pain; R11.2 Nausea with vomiting, unspecified; R42 Dizziness and giddiness; R19.7 Diarrhea, unspecified; I48.91 Unspecified atrial fibrillation; I10 Essential (primary) hypertension; J44.9 Chronic obstructive pulmonary disease, unspecified; K21.9 Gastro-esophageal reflux disease without esophagitis; G89.29 Other chronic pain; Z90.89 Acquired absence of other organs; Z98.890 Other specified postprocedural states; Z72.89 Other problems related to lifestyle; Z60.2 Problems related to living alone; Z88.2 Allergy status to sulfonamides; Z79.2 Long term (current) use of antibiotics; Z79.82 Long term (current) use of aspirin; Z79.899 Other long term (current) drug therapy; W19.XXXA Unspecified fall, initial encounter; Y93.89 Activity, other specified; Y92.89 Other specified places as the place of occurrence of the external cause; Y99.8 Other external cause status
CPT/HCPCS: 36415; 71045; 80053; 81001; 83735; 83880; 84484; 85025; 87088; 87635; 93005; 99285; C9803

== ENCOUNTER 2023-01-06 15:57 | Emergency (ER) | payer OTHER, MEDICARE, MEDICAID ==
[~2023-01-06] VITALS: Ht 172.7 cm; Wt 75.0 kg
[~2023-01-06 15:57] MED LIST changes: -AMOX500C2 PO; -ASPI81TA52 PO
[2023-01-06 16:06] VITALS: BP 138/64; PULSE 80; RESP 20; TEMP 97.6; O2SAT 96
[2023-01-06 17:12] LABS: BILIRUBIN,URINE NEGATIVE (Neg); CLARITY,URINE CLEAR (Clear); COLOR,URINE YELLOW (Yellow); GLUCOSE, URINE NEGATIVE (Neg); KETONES,URINE NEGATIVE (Neg); LEUKOCYTE ESTERASE ,URINE NEGATIVE (Neg); NITRITES, URINE NEGATIVE (Neg); OCCULT BLOOD,URINE TRACE-INTACT (Neg); PH,URINE 5.5 (4.8-8.0); PROTEIN,URINE NEGATIVE (Neg); UROBILINOGEN,URINE 0.2 E.U/dL (0.2-1.0)
[2023-01-06 17:13] LABS: UA COLLECTION TYPE CLN CATCH MIDSTREAM
[2023-01-06 17:14] LABS: BASOPHILS # (AUTO) 0.1 X10'3 (0-0.2); BASOPHILS % (AUTO) 1.9 % (0-1); EOSINOPHILS # (AUTO) 0.1 X10'3 (0-0.9); EOSINOPHILS % (AUTO) 1.7 % (0-6); HEMATOCRIT 37.7 % (42.0-52.0); HEMOGLOBIN 12.8 g/dl (14.0-17.9); LYMPHOCYTES # (AUTO) 0.9 X10'3 (1.1-4.8); LYMPHOCYTES % (AUTO) 21.5 % (21-51); MEAN CORPUSCULAR HEMOGLOBIN 35.6 PG (27.0-31.0); MEAN CORPUSCULAR VOLUME 104.6 FL (78-98); MEAN PLATELET VOLUME 7.1 FL (7.4-10.4); MONOCYTES # (AUTO) 0.4 X10'3 (0-0.9); MONOCYTES % (AUTO) 8.4 % (2-12); NEUTROPHILS # (AUTO) 2.8 X10'3 (1.8-7.7); NEUTROPHILS % (AUTO) 66.5 % (42-75); PLATELET COUNT 353 X10'3 (140-440); RED CELL DISTRIBUTION WIDTH 13.5 % (11.5-14.5); WHITE BLOOD COUNT 4.2 X10'3 (4.5-11.0)
[2023-01-06 17:16] LABS: PROTHROMBIN TIME 9.8 SECONDS (9.0-12.0)
[2023-01-06 17:18] LABS: SQUAMOUS EPITHELIAL CELL,UR NONE SEEN /LPF (FEW)
[2023-01-06 17:19] LABS: ALANINE AMINOTRANSFERASE 15 U/L (12-78); ALBUMIN 3.7 G/DL (3.4-5.0); ALKALINE PHOSPHATASE 139 IU/L (46-116); ANION GAP 8 (8-16); ASPARTATE AMINO TRANSFERASE 21 U/L (10-37); BILIRUBIN,TOTAL 0.3 MG/DL (0.1-1.0); BLOOD UREA NITROGEN 24 MG/DL (7-18); BUN/CREATININE RATIO 20.3 (10.0-20.0); CALCIUM 9.3 MG/DL (8.5-10.1); CHLORIDE 105 MMOL/L (99-107); CREATININE 1.18 MG/DL (0.60-1.10); ETHANOL 162 MG/DL (<10); GLUCOSE 108 MG/DL (70-104); LIPASE 46 U/L (16-77); POTASSIUM 3.6 MMOL/L (3.5-5.1); SODIUM 141 MMOL/L (135-145); TOTAL CARBON DIOXIDE 27.6 MMOL/L (24-32); TOTAL PROTEIN 7.3 G/DL (6.4-8.2); eCRCL 43 ML/MIN; eGFR 59 ML/MIN
[2023-01-06 17:19] LABS: BACTERIA,URINE NONE SEEN /HPF (Neg); RBC,URINE 0-2 /HPF (0-2); WBC,URINE NONE SEEN /HPF (0-4)
[2023-01-06 17:27] LABS: INR 0.9 INR
[2023-01-06 17:36] LABS: URINE AMPHETAMINE SCREEN NEGATIVE (Neg); URINE BARBITUATE SCREEN NEGATIVE (Neg); URINE BENZODIAZEPINES SCREEN NEGATIVE (Neg); URINE CANNABINOID SCREEN NEGATIVE (Neg); URINE COCAINE SCREEN NEGATIVE (Neg); URINE METHADONE SCREEN NEGATIVE (Neg); URINE OPIATE SCREEN NEGATIVE (Neg); URINE PHENCYCLIDINE SCREEN NEGATIVE (Neg)
[2023-01-06] MEDS ORDERED: acetaminophen 325mg tablet PO ONE (18:20)
== END 2023-01-06 18:47 | disposition home or self-care (01) ==
LOC: ER 15:58
DX: F10.129 Alcohol abuse with intoxication, unspecified (principal); Y90.9 Presence of alcohol in blood, level not specified
CPT/HCPCS: 36415; 73502; 80053; 80305; 80320; 81001; 83690; 85025; 85610; 99284

== ENCOUNTER 2023-05-08 15:44 | Emergency (ER) | payer OTHER, MEDICARE, MEDICAID ==
[~2023-05-08] VITALS: Ht 172.7 cm; Wt 72.7 kg
[2023-05-08 17:17] VITALS: TEMP 98
[2023-05-08 18:04] LABS: BASOPHILS # (AUTO) 0.1 X10'3 (0-0.2); BASOPHILS % (AUTO) 1.2 % (0-1); EOSINOPHILS % (AUTO) 0.2 % (0-6); HEMATOCRIT 35.6 % (42.0-52.0); LYMPHOCYTES # (AUTO) 0.8 X10'3 (1.1-4.8); LYMPHOCYTES % (AUTO) 16.4 % (21-51); MEAN CORPUSCULAR HEMOGLOBIN 34.9 PG (27.0-31.0); MEAN CORPUSCULAR HGB CONC 33.6 g/dL (33.0-36.5); MEAN CORPUSCULAR VOLUME 103.6 FL (78-98); MEAN PLATELET VOLUME 7.8 FL (7.4-10.4); MONOCYTES # (AUTO) 0.5 X10'3 (0-0.9); MONOCYTES % (AUTO) 10.3 % (2-12); NEUTROPHILS # (AUTO) 3.6 X10'3 (1.8-7.7); NEUTROPHILS % (AUTO) 71.9 % (42-75); PLATELET COUNT 227 X10'3 (140-440); RED BLOOD COUNT 3.44 X10'6 (4.70-6.10); RED CELL DISTRIBUTION WIDTH 13.6 % (11.5-14.5)
[2023-05-08 18:26] LABS: ALBUMIN 3.8 G/DL (3.4-5.0); ANION GAP 10 (8-16); BLOOD UREA NITROGEN 20 MG/DL (7-18); BUN/CREATININE RATIO 18.2 (10.0-20.0); CALCIUM 8.5 MG/DL (8.5-10.1); CHLORIDE 104 MMOL/L (99-107); ETHANOL 141 MG/DL (<10); GLUCOSE 88 MG/DL (70-104); MAGNESIUM 1.9 MG/DL (1.5-2.4); POTASSIUM 3.8 MMOL/L (3.5-5.1); PRO BRAIN NATRIURETIC PEPTIDE 846 PG/ML (0-450); SODIUM 140 MMOL/L (135-145); TOTAL CARBON DIOXIDE 26.4 MMOL/L (24-32); eCRCL 47 ML/MIN; eGFR 63 ML/MIN
[2023-05-08 18:38] LABS: PROTHROMBIN TIME 10.4 SECONDS (9.0-12.0)
[2023-05-08 18:44] LABS: APTT 28 SECONDS (22-32)
[2023-05-08] MEDS: famotidine/PF 10 mg/ml inj IV ONE (18:53)
[2023-05-08] MEDS: normal saline 1000ml 1,000 ML IV ONE (18:53)
[2023-05-08] MEDS: ondansetron/PF 4mg/2ml inj IV ONE (18:53)
[2023-05-08 19:23] LABS: BILIRUBIN,URINE NEGATIVE (Neg); CLARITY,URINE CLEAR (Clear); COLOR,URINE STRAW (Yellow); GLUCOSE, URINE NEGATIVE (Neg); KETONES,URINE NEGATIVE (Neg); LEUKOCYTE ESTERASE ,URINE NEGATIVE (Neg); NITRITES, URINE NEGATIVE (Neg); OCCULT BLOOD,URINE TRACE-INTACT (Neg); PH,URINE 5.5 (4.8-8.0); PROTEIN,URINE NEGATIVE (Neg); UROBILINOGEN,URINE 0.2 E.U/dL (0.2-1.0)
[2023-05-08 19:32] LABS: UA COLLECTION TYPE VOIDED
[2023-05-08 19:34] LABS: BACTERIA,URINE NONE SEEN /HPF (Neg); MUCUS STRANDS NONE SEEN /LPF (Neg); RBC,URINE 0-2 /HPF (0-2); SQUAMOUS EPITHELIAL CELL,UR FEW /LPF (FEW); WBC,URINE 0-4 /HPF (0-4)
[2023-05-08 19:43] LABS: URINE AMPHETAMINE SCREEN NEGATIVE (Neg); URINE BARBITUATE SCREEN NEGATIVE (Neg); URINE BENZODIAZEPINES SCREEN NEGATIVE (Neg); URINE CANNABINOID SCREEN NEGATIVE (Neg); URINE COCAINE SCREEN NEGATIVE (Neg); URINE METHADONE SCREEN NEGATIVE (Neg); URINE OPIATE SCREEN NEGATIVE (Neg); URINE PHENCYCLIDINE SCREEN NEGATIVE (Neg)
[2023-05-08] MEDS ORDERED: clindamycin 150mg capsule PO ONE (20:30)
[2023-05-08 21:55] VITALS: BP 121/67; PULSE 80; RESP 14; O2SAT 94
== END 2023-05-08 22:54 | disposition home or self-care (01) ==
LOC: ER 15:44
DX: F10.129 Alcohol abuse with intoxication, unspecified (principal); I50.9 Heart failure, unspecified; K21.9 Gastro-esophageal reflux disease without esophagitis; J44.9 Chronic obstructive pulmonary disease, unspecified; I11.0 Hypertensive heart disease with heart failure; Y90.9 Presence of alcohol in blood, level not specified
CPT/HCPCS: 36415; 70450; 71045; 80048; 80305; 80320; 81001; 83735; 83880; 84484; 85025; 85610; 85730; 93005; 96361; 96374; 96375; 99285; J2405; J3490; J7030